=== PATIENT | male | born 2000 | race African-American/Black ===

== ENCOUNTER 2020-03-06 06:24 | Emergency (ER) | payer MEDICAID ==
[~2020-03-06] VITALS: Ht 185.4 cm; Wt 88.5 kg
[2020-03-06 06:45] VITALS: BP 125/78
== END 2020-03-06 08:30 | disposition home or self-care (01) ==
LOC: ER 06:24
DX: M79.5 Residual foreign body in soft tissue (principal)
CPT/HCPCS: 73070; 73090